=== PATIENT | male | born 1985 | race Caucasian/White ===

== ENCOUNTER 2024-08-18 21:49 | Emergency (ER) | payer BC, OTHER ==
[2024-08-18 21:54] VITALS: BP 163/109; PULSE 88; RESP 18; TEMP 98
--- NOTE | 2024-08-18 22:36 | ED ---
General Adult HPI - General Chief complaint: Anxiety Stated complaint: Mental Health Eval. Time Seen by Provider: 08/18/24 22:06 Source: patient Mode of arrival: ambulatory Limitations: no limitations - History of Present Illness Initial comments: Patient is a pleasant 38-year-old male presenting today for manic episode. Patient states that he has a history of bipolar disorder and has been out of his medications for 10 months. He recently moved to the area about 1 year ago and since then has been unable to find a primary care provider or follow-up with a psychiatrist. States he previously was taking 40 mg of lurasidone, tablets of 300 mg of lithium and 15 mg of buspirone daily. States that over the last 6 days he has not slept at all and has had increasing anxiety. He states today he had a panic attack where he felt like he was breathing rapidly, felt his heart racing, felt lightheaded and could not gather his thoughts. He called his dad who was able to talk him down. Otherwise currently denies any chest pain or shortness of breath. Denies fevers or chills. Denies suicidal or homicidal ideation. Denies auditory visualizations. Denies illicit drug use or alcohol use. He also brings up that he has had discoloration of his left lower extremity over the last 1 to 2 months. States his left foot feels like there is tingling on top and has been turning purple after standing for prolonged period of time. No injuries to the affected extremity. No history of PE/DVT, no history of clotting disorders, no recent travel surgery or hospitalizations, patient is a non-smoker, no history of cancer not on hormone replacement therapy . - Related Data Previous Rx's Medication Instructions Recorded ARIPiprazole 10 mg PO DAILY 14 Days #14 tablet 08/24/23 Milfay Carbonate 300 mg PO BID 14 Days #28 capsule 08/24/23 Lurasidone [Latuda] 20 mg PO DAILY 14 Days #14 tab 08/24/23 Milfay Carbonate 300 mg PO BID 14 Days #28 capsule 08/19/24 Lurasidone [Latuda] 20 mg PO DAILY 14 Days #14 tab 08/19/24 busPIRone HCL [Buspar] 15 mg PO DAILY 14 Days #28 tablet 08/19/24 Allergies Allergy/AdvReac Type Severity Reaction Status Date / Time Penicillins Allergy Anaphylaxis Verified 08/18/24 21:54 Review of Systems ROS Statement: Those systems with pertinent positive or pertinent negative responses have been documented in the HPI. ROS Other: All systems not noted in ROS Statement are negative. Past Medical History Past Medical History: No Reported History History of Any Multi-Drug Resistant Organisms: None Reported Past Surgical History: No Surgical Hx Reported Past Psychological History: Bipolar Smoking Status: Light tobacco smoker, Vaper Past Alcohol Use History: None Reported Past Drug Use History: None Reported General Exam - General Exam Comments Initial Comments: PE: CONSTITUTIONAL: No apparent distress, well appearin though anxious SKIN: Warm, dry, no jaundice, hives or petechiae. brawny discoloration of left ankle and lateral left foot, no bruising,erythema or pallor EYES: Pupils are equally round, extraocular movements intact without nystagmus, clear conjunctiva, non-icteric sclera HENT: Normocephalic, atraumatic, moist mucus membranes, oropharynx clear without exudates NECK: , Full range of motion, normal appearance PULMONARY: Clear to auscultation without wheezes, rhonchi, or rales, normal e xcursion, no accessory muscle use and no stridor CARDIOVASCULAR: Regular rate, rhythm, normal S1 and S2. No appreciated murmurs, rubs or gallops. Strong radial pulses with intact distal perfusion. No lower extremity edema. 2+ DP pulse LLE GASTROINTESTINAL: Soft, active bowel sounds throughout, non-tender, non- distended, no palpable masses, no rebound or guarding. No hepatosplenomegaly MUSCULOSKELETAL: Extremities have no gross deformity, no edema, redness, or swelling. No calf swelling NEUROLOGIC:_a/o x 3, GCS 15, normal mentation and speech. Moves all extremities x 4 without motor or sensory deficit PSYCHIATRIC:_anxious mood and affect, thought process is clear and linear, does not appear to be responding to internal stimuli, denies SI/HI, auditory or visual sedations Limitations: no limitations Course Vital Signs 08/18/24 21:50 Temperature 98.0 F Pulse Rate 88 Respiratory 18 Rate Blood Pressure 163/109 O2 Sat by Pulse 95 Oximetry Medical Decision Making - Medical Decision Making Was pt. sent in by a medical professional or institution (, PA, RESERVATIONS MANAGER, urgent care, hospital, or alf...) When possible be specific @ -No Did you speak to anyone other than the patient for history (EMS, parent, family, police, friend...)? What history was obtained from this source @ -No Did you review nursing and triage notes (agree or disagree)? Why? @ -I reviewed nursing and triage notes Were old charts reviewed (outside hosp., previous admission, EMS record, old EKG, old radiological studies, urgent care reports/EKG's, alf records)? Report findings @ -Medical records reviewed-Chart reviewed, last visit was on 08/04/2023, patient to present to the ER for medication refill at that time as well at that time he was requesting refill on lithium, aripiprazole and lurasidone. Documented history bipolar disorder depression and anxiety, patient was discharged home with 2 weeks of his medications Differential Diagnosis (chest pain, altered mental status, abdominal pain women, abdominal pain men, vaginal bleeding, weakness, fever, dyspnea, syncope, headache, dizziness, GI bleed, back pain, seizure, CVA, palpatations, mental he alth, musculoskeletal)? @Differential Mental Health Depression, anxiety, bipolar, psychosis, schizophrenia, borderline personality, situational depression, adjustment disorder, behavioral disorder, malingering, substance abuse, medication reaction, hypothyroidism, degenerative neurologic disorder, lupus.... This is not meant to be all-inclusive list Differential Musculoskeletal Muscular strain, contusion, ligament sprain, fracture, arthritis, septic arthritis, bursitis, cellulitis, muscle spasm, nerve compression, DVT, arterial occlusion, venous stasis changes, electrolyte abnormality.... This is not meant to be in all inclusive list EKG interpreted by me (3pts min.). @ -As above X-rays interpreted by me (1pt min.). @ -None done CT interpreted by me (1pt min.). @ -None done U/S interpreted by me (1pt. min.). @ -US shows no venous occlusion, agree with radiologist interpretation What testing was considered but not performed or refused? (CT, X-rays, U/S, labs)? Why? @UDS considered however ultimately was not obtained- please see reasoning below What meds were considered but not given or refused? Why? @ -None Did you discuss the management of the patient with other professionals (pr ofessionals i.e. , PA, RESERVATIONS MANAGER, lab, RT, psych nurse, high school social studies tutor, diagnostic radiologic technologist, teacher, patrol officer, patient case coordinator)? Give summary @ -Case discussed with EPS RN, pt cleared and safety planned for discharge Was smoking cessation discussed for >3mins.? @ -No Was critical care preformed (if so, how long)? @ -No Were there social determinants of health that impacted care today? How? (Homelessness, low income, unemployed, alcoholism, drug addiction, transportation, low edu. Level, literacy, decrease access to med. care, alf, rehab)? Decreased access to medical care Was there de-escalation of care discussed even if they declined (Discuss DNR or withdrawal of care, Hospice)? @ -No What co-morbidities impacted this encounter? (DM, HTN, Smoking, COPD, CAD, Cancer, CVA, ARF, Chemo, Hep., AIDS, mental health diagnosis, sleep apnea, morbid obesity)? @Obesity, depression, bipolar disorder, anxiety Was patient admitted / discharged? Hospital course, mention meds given and route, prescriptions, significant lab abnormalities, going to OR and other pertinent info. @ DIscharged- This is a pleasant 38-year-old gentleman presenting today primarily for medication refill and manic episode. Also notes chronic discoloration of the left lower extremity without injury. On exam extremity is well perfused with palpable DP pulse and <2s cap refill. Skin exam appears most consistent with venous stasis changes however will obtain ultrasound of the lower extremity. Plan for oral Ativan, basic labs, US LLE, POC alcohol breath, UDS for clearance for EPS, TSH. Pt agreeable to EPS evaluation. Pt agreeable with POC. Labs were reviewed, does show mild leukocytosis with white blood cell count 16.65 and neutrophils 11.73 however pt denies fevers/chills, though states has been battling a "sinus infection" for the last few days. Suspect mild leukocytosis could be 2/2 this vs stress response. US negative for DVT. UDS ultimately was not obtained as would not change my management of the pt- he does not appear to be under the influence of any substances currenly and denies illicit drug use. Pt cleared for discharge by EPS. Updated pt to findings and plan for discharge with 2 weeks of his home medications. Pt resting comfortably at this time and is comfortable with plan for discharge. Pt was provided with contact information for multiple support services for mental health and [facility] who are accepting new pts. All questions were answered and pt discharged in stable condition. In my medical judgment there is currently no evidence of an immediate life- threatening or surgical condition. Discharge is therefore indicated at this time. Discharge treatment instructions, follow up instructions, and appropriate emergency department return precautions were discussed with the patient and/or medical decision maker. Patient and/or medical decision maker expressed understanding of and agreed with the treatment plan, follow up instructions, and emergency department return precaution. All patient's and/or medical decision maker's questions were answered. The patient was instructed to return to the ED for any changes in symptoms, persistent symptoms, inability to obtain proper follow-up or for any further concerns. Patient received verbal and written instructions for this condition. Undiagnosed new problem with uncertain prognosis? @ -No Drug Therapy requiring intensive monitoring for toxicity (Heparin, Nitro, Insulin, Cardizem)? @ -No Were any procedures done? @ -No Diagnosis/symptom? @Medication refill, insomnia Acute, or Chronic, or Acute on Chronic? Acute Uncomplicated (without systemic symptoms) or Complicated (systemic symptoms)? @Complicated Side effects of treatment? @ -No Exacerbation, Progression, or Severe Exacerbation? @ -No Poses a threat to life or bodily function? How? (Chest pain, USA, IA, pneumonia, PE, COPD, DKA, ARF, appy, cholecystitis, CVA, Diverticulitis, Homicidal, Suicidal, threat to staff... and all critical care pts) @ -No - Lab Data Result diagrams: 08/18/24 23:05 08/18/24 23:05 Lab Results 08/18/24 08/18/24 08/18/24 Range/Units 23:05 23:05 23:05 WBC 16.65 H (4.50-10.00) 10*3/uL RBC 5.36 (4.40-5.60) 10*6/uL Hgb 16.3 (13.0-17.0) g/dL Hct 46.1 (39.6-50.0) % MCV 86.0 (80.0-97.0) fL MCH 30.4 (27.0-32.0) pg MCHC 35.4 (32.0-37.0) g/dL Plt Count 343 (140-440) 10*3/uL MPV 9.2 L (9.5-12.2) fL Immature Gran % (Auto) 0.4 % Neutrophils % 70.4 % Lymphocytes % 19.2 % Monocytes % 6.8 % Eosinophils % 2.9 % Basophils % 0.3 % Immature Gran # 0.07 H (0.00-0.04) 10*3/uL Neutrophils # 11.73 H (1.80-7.70) 10*3/uL Lymphocytes # 3.19 (0.90-5.00) 10*3/uL Monocytes # 1.13 H (0.20-1.00) 10*3/uL Eosinophils # 0.48 H (0.04-0.35) 10*3/uL Basophils # 0.05 (0.00-0.10) 10*3/uL PT 10.5 (10.0-12.5) sec INR 0.9 (<1.2) APTT 22.8 (22.0-30.0) sec Sodium 139 (137-145) mmol/L Potassium 4.0 (3.5-5.1) mmol/L Chloride 102 (98-107) mmol/L Carbon Dioxide 24 (22-30) mmol/L Anion Gap 13 mmol/L BUN 19 (9-20) mg/dL Creatinine 0.99 (0.66-1.25) mg/dL Est GFR (CKD-EPI)AfAm >90 (>60 ml/min/1.73 sqM) Est GFR (CKD-EPI)NonAf >90 (>60 ml/min/1.73 sqM) Glucose 96 (74-99) mg/dL Calcium 10.6 H (8.4-10.2) mg/dL Total Bilirubin 0.8 (0.2-1.3) mg/dL AST 30 (17-59) U/L ALT 42 (4-49) U/L Alkaline Phosphatase 71 (38-126) U/L Total Protein 7.5 (6.3-8.2) g/dL Albumin 4.9 (3.5-5.0) g/dL TSH 1.400 (0.465-4.680) mIU/L Milfay <0.2 mmol/L Disposition Clinical Impression: Insomnia, Bipolar disorder, Medication refill Disposition: HOME SELF-CARE Instructions (If sedation given, give patient instructions): Generalized Anxiety Disorder (ED) Additional Instructions: Every disease is a spectrum and a small chance still exists that a serious condition could develop, for this reason, please monitor yourself closely for new, changing or worsening symptoms, symptoms that do not begin to improve over the course of the next week, thoughts of wanting to harm yourself or kill yourself, harm or kill others, seeing or hearing things are not there, shortness of breath, leg swelling, fever, inability to tolerate/keep down fluids or your medications, inability to follow up with outpatient providers as instructed and should you experience these symptoms or should you have any further concerns for your wellbeing please return to the ED or call 911 immediately. It was very important that you are able to have your lithium levels monitored, for that reason please follow-up with one of the primary care providers provided in your paperwork as soon as possible, preferably within 48 hours. PLEASE call your primary care physician as soon as possible to arrange / discuss plan for followup appointment. Appointment in the next 1-3 days is strongly encouraged if possible. PLEASE let us know here before you leave if there is anything further we can do to be of any assistance. Take care and feel Better! Prescriptions: busPIRone HCL [Buspar] 15 mg PO DAILY 14 Days #28 tablet Lurasidone [Latuda] 20 mg PO DAILY 14 Days #14 tab Milfay Carbonate 300 mg PO BID 14 Days #28 capsule Is patient prescribed a controlled substance at d/c from ED?: No Referrals: None,Stated [Primary Care Provider] - 1-2 days Forms: [facility]
[2024-08-18 23:22] LABS: Basophils # (A) 0.05 10*3/uL (0.00-0.10); Basophils % (A) 0.3 %; Eosinophils # (A) 0.48 10*3/uL (0.04-0.35); Eosinophils % (A) 2.9 %; HCT 46.1 % (39.6-50.0); HGB 16.3 g/dL (13.0-17.0); Lymphocytes # (A) 3.19 10*3/uL (0.90-5.00); Lymphocytes % (A) 19.2 %; MCH 30.4 pg (27.0-32.0); MCHC 35.4 g/dL (32.0-37.0); Mean Platelet Volume 9.2 fL (9.5-12.2); Monocytes # (A) 1.13 10*3/uL (0.20-1.00); Monocytes % (A) 6.8 %; Neutrophils # (A) 11.73 10*3/uL (1.80-7.70); Neutrophils % (A) 70.4 %; Platelet Count 343 10*3/uL (140-440); RBC 5.36 10*6/uL (4.40-5.60); WBC 16.65 10*3/uL (4.50-10.00)
[2024-08-18] MEDS: LORazepam 1 MG TAB PO STA ×2 (23:31→23:38)
[2024-08-18 23:35] LABS: ALT 42 U/L (4-49); AST 30 U/L (17-59); African American GFR (CKD) >90 (>60 ml/min/1.73 sqM); Albumin 4.9 g/dL (3.5-5.0); Alkaline Phosphatase 71 U/L (38-126); Anion Gap 13 mmol/L; Blood Urea Nitrogen 19 mg/dL (9-20); Calcium 10.6 mg/dL (8.4-10.2); Carbon Dioxide 24 mmol/L (22-30); Chloride 102 mmol/L (98-107); Glucose 96 mg/dL (74-99); Lithium <0.2 mmol/L; Non-African American GFR(CKD) >90 (>60 ml/min/1.73 sqM); Sodium 139 mmol/L (137-145); Total Bilirubin 0.8 mg/dL (0.2-1.3); Total Protein 7.5 g/dL (6.3-8.2)
[2024-08-18 23:44] LABS: INR 0.9 (<1.2); Partial Thromboplastin Time 22.8 sec (22.0-30.0); Prothrombin Time 10.5 sec (10.0-12.5)
--- NOTE | 2024-08-19 02:32 | US ---
EXAM: US Duplex Left Lower Extremity Veins CLINICAL HISTORY: ITS.REASON US Reason: discoloration LLE TECHNIQUE: Real-time duplex ultrasound scan of the left lower extremity veins integrating B-mode two-dimensional vascular structure, Doppler spectral analysis, color flow Doppler imaging and compression. COMPARISON: No relevant prior studies available. FINDINGS: Deep veins: Unremarkable. No DVT in the visualized common femoral, femoral, proximal deep femoral or popliteal veins. The veins demonstrate normal color flow, are normally compressible, with normal phasic flow and/or augmentation response. The interrogated calf veins are patent. Superficial veins: Unremarkable. No thrombus in the saphenofemoral junction. Soft tissues: No acute findings. No popliteal cyst. IMPRESSION: No evidence for deep vein thrombosis involving the left lower extremity.
== END 2024-08-19 03:11 | disposition home or self-care (01) ==
LOC: EC 21:49
DX: G47.00 Insomnia, unspecified (principal); F31.9 Bipolar disorder, unspecified; Z76.0 Encounter for issue of repeat prescription; E66.9 Obesity, unspecified; Z68.42 Body mass index [BMI] 45.0-49.9, adult; F17.290 Nicotine dependence, other tobacco product, uncomplicated; Z88.0 Allergy status to penicillin
CPT/HCPCS: 36415; 80053; 80178; 82075; 84443; 85025; 85610; 85730; 99284

== ENCOUNTER 2024-08-20 09:41 | Emergency (ER) | payer BC, OTHER ==
--- NOTE | 2024-08-20 11:02 | ED ---
Psych HPI - General Source: patient, RN notes reviewed Mode of arrival: ambulatory Limitations: no limitations - History of Present Illness MD Complaint: suicidal ideation, feels depressed <Randi Lozano - Last Filed: 08/20/24 16:55> <Malik De La Rosa - Last Filed: 08/20/24 17:36> - General Chief Complaint: Psychiatric Symptoms Stated Complaint: Suicidal ideations Time Seen by Provider: 08/20/24 09:57 - History of Present Illness Initial Comments: This is a 38-year-old male who presents to the emergency department for psychiatric evaluation. Patient was evaluated here for this 2 days ago. At that time he was having a panic attack and felt like he may have been in the mid dle of a manic episode. He was not sleeping and was off of his medications. He was discharged home at that time. Patient states that yesterday he started feeling suicidal with a plan to slit his throat or stab himself. He also continues to struggle with sleeping. Denies any homicidal ideations. (Randi Lozano) - Related Data Home Medications Medication Instructions Recorded Confirmed No Known Home Medications 08/20/24 08/20/24 Allergies Allergy/AdvReac Type Severity Reaction Status Date / Time Penicillins Allergy Anaphylaxis Verified 08/20/24 14:08 Review of Systems ROS Other: All systems not noted in ROS Statement are negative. <Randi Lozano - Last Filed: 08/20/24 16:55> ROS Other: All systems not noted in ROS Statement are negative. <Malik De La Rosa - Last Filed: 08/20/24 17:36> ROS Statement: Those systems with pertinent positive or pertinent negative responses have been documented in the HPI. Past Medical History Past Medical History: Hypertension, Osteoarthritis (OA) History of Any Multi-Drug Resistant Organisms: None Reported Past Surgical History: No Surgical Hx Reported Past Psychological History: Bipolar Smoking Status: Light tobacco smoker, Vaper Past Alcohol Use History: None Reported Past Drug Use History: None Reported <Randi Lozano - Last Filed: 08/20/24 16:55> General Exam Limitations: no limitations General appearance: alert, in no apparent distress Head exam: Present: atraumatic, normocephalic, normal inspection Respiratory exam: Present: normal lung sounds bilaterally. Absent: respiratory distress, wheezes, rales, rhonchi, stridor Cardiovascular Exam: Present: regular rate, normal rhythm Neurological exam: Present: alert, oriented X3, CN II-XII intact Psychiatric exam: Present: depressed, flat affect, suicidal ideation. Absent: homicidal ideation Skin exam: Present: warm, dry, intact, normal color. Absent: rash <Randi Lozano - Last Filed: 08/20/24 16:55> Course Vital Signs 08/20/24 09:47 Temperature 97.9 F Pulse Rate 94 Respiratory 20 Rate Blood Pressure 202/112 O2 Sat by Pulse 98 Oximetry Medical Decision Making <Randi Lozano - Last Filed: 08/20/24 16:55> - Lab Data Result diagrams: 08/20/24 16:55 08/20/24 16:55 <Malik De La Rosa - Last Filed: 08/20/24 17:36> - Medical Decision Making This is a 38 year old male who presents to the emergency department for psychiatric evaluation. Was pt. sent in by a medical professional or institution? @ -No Did you speak to anyone other than the patient for history? @ -No Did you review nursing and triage notes? @ -Yes, and I agree, it is accurate with regards to the patient's symptoms. Were old charts reviewed? @ -No Differential Diagnosis? @ -Differential Mental Health Depression, anxiety, bipolar, psychosis, schizophrenia, borderline personality, situational depression, adjustment disorder, behavioral disorder, brain tumor, malingering, substance abuse, encephalopathy, medication reaction, dementia, hypothyroidism, degenerative neurologic disorder, lupus.... This is not meant to be all-inclusive list EKG interpreted by me (3pts min.)? @ -Not obtained X-rays interpreted by me (1pt min.)? @ -Not obtained CT interpreted by me (1pt min.)? @ -Not obtained U/S interpreted by me (1pt. min.)? @ -Not obtained What testing was considered but not performed? (CT, X-rays, U/S, labs)? Why? @ -None What meds were considered but not given? Why? @ -None Did you discuss the management of the patient with other professionals? @ -Yes, Nadia with EPS, who advised that he meets criteria for inpatient psychiatric hospitalization but will need to be transferred. Did you reconcile home meds? @ -No Was smoking cessation discussed for >3mins.? @ -No Was critical care preformed (if so, how long)? @ -No Were there social determinants of health that impacted care today? How? (Homelessness, low income, unemployed, alcoholism, drug addiction, transportation, low edu. Level, literacy, decrease access to med. care, [facility], rehab)? @ -No Was there de-escalation of care discussed even if they declined? (Discuss DNR or withdrawal of care, Hospice)? @ -No What co-morbidities impacted this encounter? (DM, HTN, Smoking, COPD, CAD, Cancer, CVA, Hep., AIDS, mental health diagnosis, sleep apnea, morbid obesity)? @ -Bipolar disorder Was patient admitted / discharged? @ -Patient's BAT was 0.0 and he was cleared for EPS evaluation. UDS negative. [facility] evaluated the patient advised that he meets criteria for inpatient psychiatric hospitalization due to active suicidal ideations. However, due to his insurance he will need to be transferred to an alternate facility. Clinical CERT to be completed by ED attending. Undiagnosed new problem with uncertain prognosis? @ -None Drug Therapy requiring intensive monitoring for toxicity (Heparin, Nitro, Insulin, Cardizem)? @ -None Were any procedures done? @ -None Diagnosis/symptom? @ -Suicidal ideations Acute, or Chronic, or Acute on Chronic? @ -Acute Uncomplicated (without systemic symptoms) or Complicated (systemic symptoms)? @ -Complicated Side effects of treatment? @ -None Exacerbation, Progression, or Severe Exacerbation] @ -Not applicable Poses a threat to life or bodily function? @ -Yes, can lead to (Randi Lozano) Patient reevaluated by myself, Dr. De La Rosa. Patient resting comfortably in bed. Patient admitted to having stress and depression. Patient admits to being off his medications for 10 months. Patient admits to having thoughts of self-harm with plan to stab himself or cut his throat. Positive clinical certificate completed Case was discussed with mental health nurse with plans for transfer (Malik De La Rosa) - Lab Data Lab Results 08/20/24 08/20/24 08/20/24 Range/Units 12:48 16:44 16:55 WBC 11.23 H (4.50-10.00) 10*3/uL RBC 5.30 (4.40-5.60) 10*6/uL Hgb 16.4 (13.0-17.0) g/dL Hct 45.8 (39.6-50.0) % MCV 86.4 (80.0-97.0) fL MCH 30.9 (27.0-32.0) pg MCHC 35.8 (32.0-37.0) g/dL Plt Count 306 (140-440) 10*3/uL MPV 9.2 L (9.5-12.2) fL Immature Gran % (Auto) 0.4 % Neutrophils % 70.4 % Lymphocytes % 19.8 % Monocytes % 6.2 % Eosinophils % 2.9 % Basophils % 0.3 % Immature Gran # 0.05 H (0.00-0.04) 10*3/uL Neutrophils # 7.90 H (1.80-7.70) 10*3/uL Lymphocytes # 2.22 (0.90-5.00) 10*3/uL Monocytes # 0.70 (0.20-1.00) 10*3/uL Eosinophils # 0.33 (0.04-0.35) 10*3/uL Basophils # 0.03 (0.00-0.10) 10*3/uL Sodium (137-145) mmol/L Potassium (3.5-5.1) mmol/L Chloride (98-107) mmol/L Carbon Dioxide (22-30) mmol/L Anion Gap mmol/L BUN (9-20) mg/dL Creatinine (0.66-1.25) mg/dL Est GFR (CKD-EPI)AfAm (>60 ml/min/1.73 sqM) Est GFR (CKD-EPI)NonAf (>60 ml/min/1.73 sqM) Glucose (74-99) mg/dL Calcium (8.4-10.2) mg/dL Total Bilirubin (0.2-1.3) mg/dL AST (17-59) U/L ALT (4-49) U/L Alkaline Phosphatase (38-126) U/L Total Protein (6.3-8.2) g/dL Albumin (3.5-5.0) g/dL Urine Color Light Yellow Urine Appearance Clear (Clear) Urine pH 6.5 (5.0-8.0) Ur Specific [place] 1.017 (1.001-1.035) Urine Protein Negative (Negative) Urine Glucose (UA) Negative (Negative) Urine Ketones Negative (Negative) Urine Blood Negative (Negative) Urine Nitrite Negative (Negative) Urine Bilirubin Negative (Negative) Urine Urobilinogen <2.0 (<2.0) mg/dL Ur Leukocyte Esterase Negative (Negative) Urine Opiates Screen Not Detected (NotDetected) Ur Oxycodone Screen Not Detected (NotDetected) Urine Methadone Screen Not Detected (NotDetected) Ur Barbiturates Screen Not Detected (NotDetected) U Tricyclic Antidepress Not Detected (NotDetected) Ur Phencyclidine Scrn Not Detected (NotDetected) Ur Amphetamines Screen Not Detected (NotDetected) U Methamphetamines Scrn Not Detected (NotDetected) U Benzodiazepines Scrn Not Detected (NotDetected) Urine Cocaine Screen Not Detected (NotDetected) U Marijuana (THC) Screen Not Detected (NotDetected) Influenza Type A (PCR) Not Detected (Not Detectd) Influenza Type B (PCR) Not Detected (Not Detectd) RSV (PCR) Not Detected (Not Detectd) SARS-CoV-2 (PCR) Not Detected (Not Detectd) 08/20/24 Range/Units 16:55 WBC (4.50-10.00) 10*3/uL RBC (4.40-5.60) 10*6/uL Hgb (13.0-17.0) g/dL Hct (39.6-50.0) % MCV (80.0-97.0) fL MCH (27.0-32.0) pg MCHC (32.0-37.0) g/dL Plt Count (140-440) 10*3/uL MPV (9.5-12.2) fL Immature Gran % (Auto) % Neutrophils % % Lymphocytes % % Monocytes % % Eosinophils % % Basophils % % Immature Gran # (0.00-0.04) 10*3/uL Neutrophils # (1.80-7.70) 10*3/uL Lymphocytes # (0.90-5.00) 10*3/uL Monocytes # (0.20-1.00) 10*3/uL Eosinophils # (0.04-0.35) 10*3/uL Basophils # (0.00-0.10) 10*3/uL Sodium 139 (137-145) mmol/L Potassium 3.9 (3.5-5.1) mmol/L Chloride 102 (98-107) mmol/L Carbon Dioxide 28 (22-30) mmol/L Anion Gap 9 mmol/L BUN 15 (9-20) mg/dL Creatinine 0.95 (0.66-1.25) mg/dL Est GFR (CKD-EPI)AfAm >90 (>60 ml/min/1.73 sqM) Est GFR (CKD-EPI)NonAf >90 (>60 ml/min/1.73 sqM) Glucose 113 H (74-99) mg/dL Calcium 10.1 (8.4-10.2) mg/dL Total Bilirubin 1.0 (0.2-1.3) mg/dL AST 30 (17-59) U/L ALT 41 (4-49) U/L Alkaline Phosphatase 60 (38-126) U/L Total Protein 7.1 (6.3-8.2) g/dL Albumin 4.4 (3.5-5.0) g/dL Urine Color Urine Appearance (Clear) Urine pH (5.0-8.0) Ur Specific [place] (1.001-1.035) Urine Protein (Negative) Urine Glucose (UA) (Negative) Urine Ketones (Negative) Urine Blood (Negative) Urine Nitrite (Negative) Urine Bilirubin (Negative) Urine Urobilinogen (<2.0) mg/dL Ur Leukocyte Esterase (Negative) Urine Opiates Screen (NotDetected) Ur Oxycodone Screen (NotDetected) Urine Methadone Screen (NotDetected) Ur Barbiturates Screen (NotDetected) U Tricyclic Antidepress (NotDetected) Ur Phencyclidine Scrn (NotDetected) Ur Amphetamines Screen (NotDetected) U Methamphetamines Scrn (NotDetected) U Benzodiazepines Scrn (NotDetected) Urine Cocaine Screen (NotDetected) U Marijuana (THC) Screen (NotDetected) Influenza Type A (PCR) (Not Detectd) Influenza Type B (PCR) (Not Detectd) RSV (PCR) (Not Detectd) SARS-CoV-2 (PCR) (Not Detectd) Disposition <Randi Lozano - Last Filed: 08/20/24 16:55> <Malik De La Rosa - Last Filed: 08/20/24 17:36> Clinical Impression: Suicidal ideations Disposition: TRANSFER TO PSYCH HOSP/UNIT Referrals: None,Stated [Primary Care Provider] - 1-2 days
[2024-08-20 13:01] LABS: Appearance,Urine Clear (Clear); Bilirubin,Urine Negative (Negative); Blood,Urine Negative (Negative); Color,Urine Light Yellow; Glucose,Urine (UA) Negative (Negative); Ketones,Urine Negative (Negative); Leukocyte Esterase,Urine Negative (Negative); Nitrite,Urine Negative (Negative); PH, Urine 6.5 (5.0-8.0); Protein,Urine Negative (Negative); Specific Gravity,Urine 1.017 (1.001-1.035); Urobilinogen,Urine <2.0 mg/dL (<2.0)
[2024-08-20 13:26] LABS: Amphetamine Screen,Urine Not Detected (NotDetected); Barbiturate Screen,Urine Not Detected (NotDetected); Benzodiazepines Screen,Urine Not Detected (NotDetected); Cocaine Screen,Urine Not Detected (NotDetected); Methadone Screen, Urine Not Detected (NotDetected); Opiate Screen,Urine Not Detected (NotDetected); Oxycodone Screen, Urine Not Detected (NotDetected); Phencyclidine Screen,Urine Not Detected (NotDetected); Tricyclic Antidepressant,Urine Not Detected (NotDetected); Urn Cannabinoid Scrn Not Detected (NotDetected)
[2024-08-20 17:00] LABS: Basophils # (A) 0.03 10*3/uL (0.00-0.10); Basophils % (A) 0.3 %; Eosinophils # (A) 0.33 10*3/uL (0.04-0.35); Eosinophils % (A) 2.9 %; HCT 45.8 % (39.6-50.0); HGB 16.4 g/dL (13.0-17.0); Lymphocytes # (A) 2.22 10*3/uL (0.90-5.00); Lymphocytes % (A) 19.8 %; MCH 30.9 pg (27.0-32.0); MCHC 35.8 g/dL (32.0-37.0); MCV 86.4 fL (80.0-97.0); Mean Platelet Volume 9.2 fL (9.5-12.2); Monocytes % (A) 6.2 %; Neutrophils % (A) 70.4 %; Platelet Count 306 10*3/uL (140-440); RDW 11.9 % (11.5-14.5); WBC 11.23 10*3/uL (4.50-10.00)
[2024-08-20 17:18] LABS: ALT 41 U/L (4-49); AST 30 U/L (17-59); African American GFR (CKD) >90 (>60 ml/min/1.73 sqM); Albumin 4.4 g/dL (3.5-5.0); Alkaline Phosphatase 60 U/L (38-126); Anion Gap 9 mmol/L; Blood Urea Nitrogen 15 mg/dL (9-20); Calcium 10.1 mg/dL (8.4-10.2); Carbon Dioxide 28 mmol/L (22-30); Chloride 102 mmol/L (98-107); Glucose 113 mg/dL (74-99); Non-African American GFR(CKD) >90 (>60 ml/min/1.73 sqM); Potassium 3.9 mmol/L (3.5-5.1); Sodium 139 mmol/L (137-145); Total Protein 7.1 g/dL (6.3-8.2)
[2024-08-20 17:27] LABS: Influenza A Not Detected (Not Detectd); Influenza B Not Detected (Not Detectd); RSV Not Detected (Not Detectd)
[2024-08-21 07:06] LABS: Chol/HDL Ratio 4.95 Ratio; LDL Cholesterol,Calculated 150.1 mg/dL (0.0-131.0)
[2024-08-21] MEDS: LORazepam 1 MG TAB PO STA (22:32)
[2024-08-22 01:29] VITALS: TEMP 97.7
[2024-08-22] MEDS: NAPROXEN 250 MG TAB PO STA (01:35)
[2024-08-22 08:08] VITALS: BP 140/68; PULSE 78; RESP 20
== END 2024-08-22 08:07 ==
LOC: EC 09:41
DX: R45.851 Suicidal ideations (principal); F31.9 Bipolar disorder, unspecified; F17.290 Nicotine dependence, other tobacco product, uncomplicated; Z88.0 Allergy status to penicillin; Z11.52 Encounter for screening for COVID-19
CPT/HCPCS: 36415; 80053; 80061; 80306; 81003; 82075; 83036; 85025; 87636; 99285